=== PATIENT | female | born 1995 | race Caucasian/White ===

== ENCOUNTER 2024-02-07 13:22 | Outpatient (REF) | payer MEDICARE, MEDICAID, SELFPAY ==
--- NOTE | 2024-02-07 13:30 | EMG_ITS ---
Chief complaint: Acute onset left arm numbness and tingling, shoulder pain, 3-4 weeks ago, no inciting injuries Reason for referral: Evaluate for entrapment neuropathy Referred by: Lissa Goodson NP Procedure done: Left upper extremity NCS/EMG Precautions and/or limitations: Patient afraid of needles. Anxiety. Mom present to support patient. The limb temperature was monitored continuously and remained between 32-36 degrees C during the performance of the NCS. Nerve Conduction Studies Anti Sensory Summary Table ?Stim Site NR Onset (ms) Norm Onset (ms) Peak (ms) Norm Peak (ms) O-P Amp (?V) Norm O-P Amp Site1 Site2 Delta-0 (ms) Dist (cm) Radhames (m/s) Norm Radhames (m/s) Left Median Anti Sensory (2nd Digit) Wrist ? 1.7 2.9 <3.6 55.0 >10 Wrist 2nd Digit 1.7 14.0 82 Left Radial Anti Sensory (Thumb) Forearm ? 1.7 2.3 <3.1 10.5 Forearm Thumb 1.7 0.0 Left Ulnar Anti Sensory (5th Digit) Wrist ? 2.5 3.3 <3.7 23.3 >15.0 Wrist 5th Digit 2.5 14.0 56 Motor Summary Table ?Stim Site NR Onset (ms) Norm Onset (ms) O-P Amp (mV) Norm O-P Amp iAmp (mV) Amp (1st) (%) Site1 Site2 Delta-0 (ms) Dist (cm) Radhames (m/s) Norm Radhames (m/s) Left Median Motor (Abd Poll Brev) Wrist ? 3.5 <3.9 10.2 >4.5 13.5 100.0 Elbow Wrist 3.6 18.0 50 >45 Elbow ? 7.1 10.7 13.8 104.9 Left Ulnar Motor (Abd Dig Minimi) Wrist ? 2.6 <3.0 11.4 >5 14.1 100.0 B Elbow Wrist 2.8 16.5 59 >45 B Elbow ? 5.4 10.2 12.8 89.5 A Elbow B Elbow 1.7 10.0 59 >45 A Elbow ? 7.1 9.9 12.5 86.8 EMG ?Side Muscle Nerve Root Ins Act Fibs Psw Amp Dur Poly Recrt Int Pat Comment Left 1stDorInt Ulnar C8-T1 Nml Nml Nml Nml Nml 0 Nml Complete Left FlexCarRad Median C6-7 Nml Nml Nml Nml Nml 0 Nml Complete Left Biceps Musculocut C5-6 Nml Nml Nml Nml Nml 0 Nml Complete Left Triceps Radial C6-7-8 Nml Nml Nml Nml Nml 0 Nml Complete Left Deltoid Axillary C5-6 Nml Nml Nml Nml Nml 0 Nml Complete FINDINGS: All motor and sensory nerves tested showed normal latencies, amplitudes and conduction velocities. Concentric needle EMG was performed in selected muscles of the lower extremity. Study did not reveal signs of electric abnormalities as shown in the table above. IMPRESSION: 1. This is a normal study. 2. There is no electrodiagnostic evidence for median neuropathy, ulnar neuropathy, brachial plexopathy, or cervical radiculopathy. Thank you for your kind referral. Shruthi Ramos MD, ROBERT Board Certified, [place] [employer] (ABPMR) Board Certified, [place] [employer] Electro[employer] (ABEM) [place] [id number] [facility]
== END 2024-02-07 13:23 | disposition home or self-care (01) ==
LOC: HO.NEURO 13:22
PROVIDERS: PCP Nurse Practitioner Family; Visit Provider Nurse Practitioner Family
DX: R20.0 Anesthesia of skin (principal)
CPT/HCPCS: 95886; 95909

== ENCOUNTER → 2024-02-07 13:30 | Outpatient (BNV) | payer MEDICARE, MEDICAID, SELFPAY | PROVIDERS: PCP Nurse Practitioner Family; Visit Provider Physical Medicine & Rehabilitation | DX: R20.2 Paresthesia of skin (principal); M79.602 Pain in left arm | CPT/HCPCS: 95886; 95909 ==